=== PATIENT | male | born 1950 | race Caucasian/White ===

== ENCOUNTER 2017-05-17 08:51 | Outpatient (CLI) | payer MEDICARE, OTHER ==
--- NOTE | 2017-05-17 15:14 | Diagnostic Imaging Report ---
CONSTANTIN CHICAS [facility] [id number] [id number] Report Submission Date: May 17, 2017 10:01:54 AM CDT Patient Study Name: JAIME HOWELL Date: May 17, 2017 8:08:16 AM CDT Modality Type: US Gender: M Description: AAA SCREEN MEDICARE : 54 Institution: [facility] Physician: CONSTANTIN CHICAS Examination: Ultrasound aorta History: Evaluate for aneurysm Comparison exams: None available Findings: Proximal aorta difficult to visualize though appears to measure approximately 2.6 cm maximally.. Mid aorta measures 2.5 cm maximally. Distal aorta measures 1.5 cm maximally. Iliac vessels measure 1.4 wall the cm. No peripheral calcification or thrombus. Impression: No evidence for abdominal aortic aneurysm. Electronically signed on May 17, 2017 10:01:54 AM CDT by: Gerardo [email or web address]
== END 2017-05-17 08:52 ==
LOC: RAD 08:51
PROVIDERS: ATTEND Family Medicine
DX: Z00.00 Encounter for general adult medical examination without abnormal findings (principal); Z82.49 Family history of ischemic heart disease and other diseases of the circulatory system
CPT/HCPCS: 93979